=== PATIENT | female | born 1980 | race Caucasian/White ===

== ENCOUNTER 2018-03-23 18:30 | Emergency (ER) | payer OTHER ==
[~2018-03-23 18:30] MED LIST: AMITIZA24 MICROGR PO; BACTRIM,SEPT1 TABLET PO; FIORICET 50-301 EACH PO; KLONOPIN0.5 M1 PO; LAMICTAL150 M1 PO; LAMICTAL200 MG PO; LATUDA40 MG PO; METHADONE 22 MG/1 ML PO; MIRALAX17 GM PO; MOTRIN800 MG PO; MOVANTIK25 MG PO; NAPROSYN500 MG PO; NORCO 10/3251 TABLET PO; RISPERIDONE2 MG PO; VYVANSE40 MG PO; ZOFRAN ODT4 MG PO
[2018-03-24] MEDS ORDERED: ALPRAZOLAM1 MG PO (14:27)
== END 2018-03-23 19:37 | disposition left against medical advice (07) ==
LOC: EME 18:30
DX: M54.9 Dorsalgia, unspecified (principal); Z53.21 Procedure and treatment not carried out due to patient leaving prior to being seen by health care provider

== ENCOUNTER 2018-03-24 11:05 | Emergency (ER) | payer OTHER ==
[~2018-03-24] VITALS: Ht 160 cm; Wt 81.0 kg
[2018-03-24 12:14] LABS: HEMATOCRIT 46.8 % (36.0-46.0); HEMOGLOBIN 16.2 G/DL (11.9-15.5); MCH 30.3 PG (29.0-34.0); MCHC 34.6 G/DL (30.0-36.0); MCV 87.5 FL (83-99); PLATELET COUNT 179 K/uL (156-360); RBC DIS.WIDTH-CV 11.6 % (11.8-14.6); RBC DIS.WIDTH-SD 37.4 % (39-53); RED BLOOD COUNT 5.35 M/uL (3.80-5.20); WHITE BLOOD COUNT 8.1 K/uL (4.1-10.2)
[2018-03-24 12:22] LABS: CHLORIDE 104 mEq/L (99-109); POTASSIUM 4.1 mEq/L (3.7-5.4); SODIUM 139 mEq/L (136-147)
[2018-03-24 12:24] LABS: GLUCOSE 109 mg/dL (70-99)
[2018-03-24 12:28] LABS: CREATININE 0.7 mg/dL (0.6-1.3); GFR ESTIMATE (CALCULATED) > 59 mL/min/
[2018-03-24 12:29] LABS: UREA NITROGEN (BUN) 7 mg/dL (9-23)
[2018-03-24 12:35] LABS: TROP-I INTERPRETATION NEGATIVE; TROPONIN-I < 0.01 ng/mL (0.0-0.30)
[2018-03-24] MEDS ORDERED: ALPRAZOLAM1 MG PO (14:27)
[2018-03-24 15:00] VITALS: BP 142/90
== END 2018-03-24 15:00 | disposition home or self-care (01) ==
LOC: EME 11:05
DX: R07.9 Chest pain, unspecified (principal); F43.9 Reaction to severe stress, unspecified; M54.6 Pain in thoracic spine; R06.02 Shortness of breath; F17.200 Nicotine dependence, unspecified, uncomplicated
CPT/HCPCS: 71046; 80048; 84484; 85027; 93005; 99281; 99285